=== PATIENT | male | born 1975 | race Caucasian/White ===

== ENCOUNTER → 2019-03-19 | Outpatient (CLI) | payer BC ==
--- NOTE | 2019-03-19 14:23 | MRI ---
MRI right knee without contrast INDICATION: Knee pain TECHNIQUE: Noncontrast MR imaging right knee FINDINGS: Cruciate ligaments are intact. Extensor tendons are intact. Mild prepatellar bursal edema. Small joint effusion. No focal meniscal defect. Grade 2 MCL sprain without complete rupture. This extends into the medial retinaculum. No fracture. Lateral collateral structures are intact. Chondral fissuring grade 3 inferior medial trochlea. No advanced arthrosis. Grade 4 chondral fissuring medial patellar facet with subchondral edema. No patellar subluxation or dislocation. No contusions or impactions to suggest patellar dislocation Small area of contusion or reactive subchondral edema high posterior aspect lateral femoral condyle axial series 301 image 19 IMPRESSION: MCL and medial retinacular sprain/partial tear No acute patellar dislocation Grade 4 chondral fissuring medial patellar facet and grade 3 chondrosis inferior medial trochlea Mild subchondral edema high posterior aspect lateral femoral condyle Small joint effusion No additional stabilizing ligament injury. Electronically signed by: Carmine Woodard MD 03/19/2019 2:21 PM CDT
== END ==
LOC: MRI 07:49
PROVIDERS: ATTEND Physician Assistant
DX: S83.411A Sprain of medial collateral ligament of right knee, initial encounter (principal); M22.41 Chondromalacia patellae, right knee

== ENCOUNTER 2020-06-11 08:22 | Emergency (ER) | payer BC ==
[2020-06-11] MEDS: ACETAMINOPHEN 325 MG TAB PO ONE (08:34)
--- NOTE | 2020-06-11 08:34 | ED.PDOC ---
History of Present Illness - General Stated Complaint: Leg Swelling Time Seen by Provider: 06/11/20 08:31 Source: patient Exam Limitations: no limitations Additional Information: 44M with no significant past medical history presents with right lower extremity swelling and pain. 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 Woke this morning with right ankle swelling and pain, had difficulty walking but symptoms have improved during the day and with advil. He denies any weakness, numbness or tingling. No history of gout. He does not have any history of blood clots. No recent immobilization. No other complaints at this time. - History of Present Illness Occurred: yesterday Pain - Lower Extremity: mild: Right Calf - pain, swelling, Right Ankle - pain, swelling Method of Injury: unknown Improving Factors: immobilization, medication, rest Worsening Factors: movement Allergies/Adverse Reactions: Allergies NO KNOWN ALLERGY Allergy (Verified 06/11/20 08:39) Review of Systems - Review of Systems Constitutional: States: no symptoms reported EENTM: States: no symptoms reported Respiratory: States: no symptoms reported Cardiology: States: no symptoms reported Gastrointestinal/Abdominal: States: no symptoms reported Genitourinary: States: no symptoms reported Musculoskeletal: States: joint pain, joint swelling, muscle pain Skin: States: no symptoms reported. Denies: change in color, lesions, rash Neurological: States: no symptoms reported. Denies: numbness, tingling, weakness Endocrine: States: no symptoms reported Hematologic/Lymphatic: States: no symptoms reported All other Systems: Reviewed and Negative Family Medical History - Family History Maternal Grandparents Hx Family Diabetes: Yes Paternal Grandparents Hx Family Cancer: Yes Physical Exam - Physical Exam General Appearance: Comfortable, No apparent distress Thigh/Hip: normal inspection, non-tender, no evidence of injury, normal ROM Leg: normal ROM, swelling - lower right calf Knee: normal inspection, non-tender, no evidence of injury, normal ROM Ankle: swelling - moderate swelling to ankle. No wounds, erythema or warmth Foot: normal inspection, non-tender, no evidence of injury, normal ROM Neuro/Tendon: normal sensation, normal motor functions Mental Status: alert, oriented x 3 Skin: normal color, warm/dry Progress - Progress Progress: 06/11/20 10:35 Patient reassessed, he is feeling well. US shows no DVT. There is no redness or erythema suggestive of infection. There is normal ROM and no findings concerning for gout, septic arthritis, or other emergent etiology. He does not have mechanism of injury for fracture/dislocation and he has been ambulatory. May be over-use injury from working on ladder. Recommend compression, ice, elevation. Tylenol/motrin for pain as needed. Home care instructions and return indications reviewed. Advised to return for worsening/persistent symptoms, new symptoms including but not limited to redness, fever, pain. - Results/Orders Results/Orders: US DVT: No DVT Departure - Departure Clinical Impression: Peripheral edema Time of Disposition: 10:37 Disposition: Discharge to Home or Self Care Condition: Excellent Instructions: Dependent Edema (DC) Diet: low salt diet Activity: increase activity as tolerated, walking as tolerated Referrals: Lyle Queen III, MD [Primary Care Provider] - 1-2 Weeks
[2020-06-11 10:03] VITALS: O2SAT 98
--- NOTE | 2020-06-11 10:32 | US ---
EXAM DESCRIPTION: Venous,Lower Extremity RT CLINICAL HISTORY: RLE swelling, pain COMPARISON: None. TECHNIQUE: 2D grayscale and color venous duplex Doppler evaluation of the lower extremity are obtained from groin to calf. FINDINGS: There is normal flow, augmentation to flow, and compressibility of the deep venous vasculature of the right lower extremity with no ultrasound evidence of deep venous thrombosis. IMPRESSION: No ultrasound evidence of deep venous thrombosis . Electronically signed by: Zackary Torres MD 06/11/2020 10:30 AM CDT
[2020-06-11 10:51] VITALS: BP 121/73; TEMP 97.6
== END 2020-06-11 10:45 | disposition home or self-care (01) ==
LOC: ER 08:22
DX: R60.0 Localized edema (principal); M79.661 Pain in right lower leg; M25.571 Pain in right ankle and joints of right foot

== ENCOUNTER → 2020-06-24 | Outpatient (CLI) | payer BC ==
--- NOTE | 2020-06-24 15:14 | RAD ---
EXAM DESCRIPTION: Knee,Right Complete CLINICAL HISTORY: 44 years Male, PAIN IN RIGHT KNEE COMPARISON: None. Findings: Four views/radiographs Location: Right knee No acute fracture or dislocation. Joint spaces are maintained. No significant joint effusion. IMPRESSION: No evidence of acute process in the right knee. Electronically signed by: Ubaldo Almazan MD 06/24/2020 3:13 PM CDT
--- NOTE | 2020-06-24 15:14 | RAD ---
EXAM DESCRIPTION: Ankle,Right 3 Views CLINICAL HISTORY: 44 years Male, PAIN IN RIGHT ANKLE COMPARISON: None. Findings: 3 views/radiographs Location: Right ankle No acute fracture or dislocation. Joint spaces are maintained. The talar dome is unremarkable. The ankle mortise is symmetric. Right ankle soft tissue swelling. IMPRESSION: Right ankle soft tissue swelling. No acute osseous abnormality. Electronically signed by: Ubaldo Almazan MD 06/24/2020 3:12 PM CDT
--- NOTE | 2020-06-24 15:15 | RAD ---
EXAM DESCRIPTION: Tibia/Fibula,Right CLINICAL HISTORY: 44 years Male, PAIN IN LOWER LIMB COMPARISON: None. Findings: Two view(s)/radiograph(s) No acute fracture or dislocation. Joint spaces are maintained. No osseous erosion. IMPRESSION: No acute process in the right tibia/fibula. Electronically signed by: Ubaldo Almazan MD 06/24/2020 3:13 PM CDT
== END ==
LOC: RAD 07:50
PROVIDERS: ATTEND Orthopaedic Surgery
DX: M25.571 Pain in right ankle and joints of right foot (principal); M25.561 Pain in right knee; M79.661 Pain in right lower leg; M79.9 Soft tissue disorder, unspecified

== ENCOUNTER → 2020-07-28 | Outpatient (CLI) | payer BC | LOC: GMAL 10:27 | PROVIDERS: ATTEND Family Medicine | DX: M10.9 Gout, unspecified (principal) ==